=== PATIENT | female | born 2000 | race Hispanic/Latino ===

== ENCOUNTER 2020-11-28 16:37 | Emergency (ER) | payer OTHER ==
[~2020-11-28] VITALS: Wt 55.3 kg
[2020-11-28] MEDS ORDERED: ONDANSETRON ODT8 MG PO (18:09)
== END 2020-11-28 18:19 | disposition home or self-care (01) ==
LOC: ED 16:37
DX: H83.09 Labyrinthitis, unspecified ear (principal)
CPT/HCPCS: 99283

== ENCOUNTER 2022-03-12 20:08 | Emergency (ER) | payer OTHER ==
[~2022-03-12] VITALS: Ht 160 cm; Wt 63.0 kg
[~2022-03-12 20:08] MED LIST: ONDANSETRON ODT8 MG PO
[2022-03-12] MEDS ORDERED: LIDOCAINE HCL100 ML MT (23:01)
== END 2022-03-12 23:26 | disposition home or self-care (01) ==
LOC: ED 20:08
DX: B08.4 Enteroviral vesicular stomatitis with exanthem (principal)
CPT/HCPCS: 99282